=== PATIENT | male | born 1965 ===

== ENCOUNTER 2017-07-19 10:15 | Outpatient (CLI) | payer OTHER | END 2017-07-19 10:29 | disposition home or self-care (01) | LOC: NUCLEAR 10:15 | DX: C73 Malignant neoplasm of thyroid gland (principal) | CPT/HCPCS: 78018; 78020; A9528 ==

== ENCOUNTER 2020-10-25 09:47 | Outpatient (CLI) | payer OTHER | END 2020-10-25 09:58 | disposition home or self-care (01) | LOC: MRI 09:47 | PROVIDERS: ATTEND Physical Medicine & Rehabilitation | DX: M54.5 Low back pain (principal); M54.6 Pain in thoracic spine; M54.2 Cervicalgia ==

== ENCOUNTER 2020-12-19 11:40 | Outpatient (CLI) | payer OTHER | END 2020-12-19 11:49 | disposition home or self-care (01) | LOC: RAD 11:40 | PROVIDERS: ATTEND Physical Medicine & Rehabilitation | DX: M17.0 Bilateral primary osteoarthritis of knee (principal); M70.41 Prepatellar bursitis, right knee; M19.042 Primary osteoarthritis, left hand ==